=== PATIENT | female | born 1945 | race Caucasian/White ===

== ENCOUNTER → 2019-07-10 | Outpatient (CLI) | payer MEDICARE ==
[~2019-07-10] MED LIST: ASPIR 8181 MG PO; HYDROCHLOROTH12.5 MG PO; LISINOPRIL40 MG PO
== END ==
LOC: MAMMO 14:22
PROVIDERS: ATTEND Family Medicine
DX: N63.20 Unspecified lump in the left breast, unspecified quadrant (principal)
CPT/HCPCS: 77066